=== PATIENT | female | born 1990 | race Caucasian/White ===

== ENCOUNTER 2016-02-22 09:42 | Emergency (ER) | payer SELFPAY ==
[2016-02-22] MEDS ORDERED: OPTIRAY 350 100 ML VIAL HMH IV ONE (09:43)
[2016-02-22] MEDS ORDERED: SODIUM CHLORIDE 0.9% 1,000 ML ONE (11:04)
[2016-02-22] MEDS ORDERED: SODIUM CHLORIDE 0.9% 100 ML IV ONE (11:04)
[2016-02-22] MEDS ORDERED: CEFTRIAXONE 1 GM VIAL ONE (11:04)
== END 2016-02-22 12:33 | disposition home or self-care (01) ==
LOC: ER 09:42
CPT/HCPCS: 36415; 70491; 80053; 85025; 96361; 96365